=== PATIENT | male | born 1965 | race Caucasian/White ===

== ENCOUNTER 2017-10-17 21:31 | Emergency (ER) | payer BC ==
[2017-10-17 21:36] VITALS: RESP 18
--- NOTE | 2017-10-17 21:41 | ED ---
General Adult HPI - General Chief complaint: Abdominal Pain Stated complaint: lower right abdominal pain Time Seen by Provider: 10/17/17 21:41 Source: patient Mode of arrival: ambulatory Limitations: no limitations - History of Present Illness Initial comments: Ector is a 51-year-old male who presents to the emergency department for evaluation of a sudden onset of right-sided abdominal and flank pain. Patient reports that he was in his usual state of health throughout the day today, he was able to attend to his usual weekend activities including doing yardwork. He reports the symptoms from for dinner. Around 9 PM he was sitting on his couch when he had a sudden onset of stabbing pain in his right lower quadrant and right flank. - Related Data Home Medications Medication Instructions Recorded Confirmed Atorvastatin [Lipitor] 10 mg PO DAILY 08/11/17 10/17/17 Vit D3/Folic Acid/B2/B6/B12 1 tab PO DAILY 08/11/17 10/17/17 [Folgard Tablet] metFORMIN HCL 1,000 mg PO DAILY 08/11/17 10/17/17 sitaGLIPtin [Januvia] 100 mg PO DAILY 08/11/17 10/17/17 Previous Rx's Medication Instructions Recorded HYDROcodone/APAP 5-325MG [[place] 5] 1 each PO Q4HR PRN #8 tab 10/17/17 Tamsulosin HCl [Flomax] 0.4 mg PO DAILY #7 cap 10/17/17 Allergies Allergy/AdvReac Type Severity Reaction Status Date / Time No Known Allergies Allergy Verified 08/11/17 14:28 Review of Systems ROS Statement: Those systems with pertinent positive or pertinent negative responses have been documented in the HPI. ROS Other: All systems not noted in ROS Statement are negative. Past Medical History Past Medical History: Diabetes Mellitus, Hyperlipidemia Additional Past Medical History / Comment(s): myofascial pain, hypertriglyceridemia History of Any Multi-Drug Resistant Organisms: None Reported Past Surgical History: Orthopedic Surgery, Tonsillectomy Additional Past Surgical History / Comment(s): right foot surgery Past Anesthesia/Blood Transfusion Reactions: No Reported Reaction Past Psychological History: No Psychological Hx Reported Smoking Status: Never smoker General Exam Limitations: no limitations Course Vital Signs 10/17/17 10/17/17 10/18/17 21:33 23:11 00:04 Temperature 99.3 F 98.4 F Pulse Rate 77 95 91 Respiratory 18 18 18 Rate Blood Pressure 134/96 160/71 157/70 O2 Sat by Pulse 96 98 98 Oximetry - Reevaluation(s) Reevaluation #1: Patient reevaluated, reports resolution of his pain after Toradol. CT is still pending but I advised the patient that based on his labs and urinalysis I have a high suspicion for a kidney stone. 10/17/17 23:27 Medical Decision Making - Medical Decision Making Patient seen and evaluated, history obtained from patient and Patient with acute onset severe RLQ pain, patient with no flank pain. Differential includes intraabdominal vs urogenital pain, labs and imaging ordered Patient was reevaluated, was bent over in pain clutching his lower abdomen. At this time a computed tomography scan was ordered Labs with normal WBC, microscopic hematuria - increasing suspicion for renal colic as the cause of patient's pain Toradol was ordered and given Patient went to CT, upon return he reports complete resolution of his pain and is lying comfortably in the bed. Again this increases my suspicion that this is renal colic. CT results are pending. A reveals a 5 mm UVJ stone. Addition a 3 mm stone in the right kidney. Mild hydronephrosis. Results were discussed with the patient, advised that the stone has traveled from the kidney and is sitting at the bladder, 5 mm stone is likely to pass the may cause some discomfort. I will discharge patient home with a few [place] as well as Jyoti. I will refer patient to urology for outpatient follow-up. I discussed with patient the indications for return to the emergency department including but not limited to pain not controlled by oral medications, fever, chills, pain with urination, and ability to tolerate oral intake or any new or concerning symptoms. All questions pertaining care were answered to the best of my ability and the patient was discharged home in stable condition. - Lab Data Result diagrams: 10/17/17 22:00 10/17/17 22:00 Lab Results 10/17/17 10/17/17 10/17/17 Range/Units 21:45 22:00 22:00 WBC 8.4 (3.8-10.6) k/uL RBC 5.32 (4.30-5.90) m/uL Hgb 14.9 (13.0-17.5) gm/dL Hct 43.9 (39.0-53.0) % MCV 82.6 (80.0-100.0) fL MCH 28.1 (25.0-35.0) pg MCHC 34.0 (31.0-37.0) g/dL RDW 12.9 (11.5-15.5) % Plt Count 232 (150-450) k/uL Neutrophils % 60 % Lymphocytes % 25 % Monocytes % 9 % Eosinophils % 3 % Basophils % 0 % Neutrophils # 5.0 (1.3-7.7) k/uL Lymphocytes # 2.1 (1.0-4.8) k/uL Monocytes # 0.8 (0-1.0) k/uL Eosinophils # 0.2 (0-0.7) k/uL Basophils # 0.0 (0-0.2) k/uL Sodium 143 (137-145) mmol/L Potassium 4.2 (3.5-5.1) mmol/L Chloride 104 (98-107) mmol/L Carbon Dioxide 23 (22-30) mmol/L Anion Gap 16 mmol/L BUN 29 H (9-20) mg/dL Creatinine 1.20 (0.66-1.25) mg/dL Est GFR (CKD-EPI)AfAm 81 (>60 ml/min/1.73 sqM) Est GFR (CKD-EPI)NonAf 70 (>60 ml/min/1.73 sqM) Glucose 133 H (74-99) mg/dL POC Glucose (mg/dL) 133 H (75-99) mg/dL POC Glu Care Asst Blayne Yang Calcium 10.2 (8.4-10.2) mg/dL Total Bilirubin 0.5 (0.2-1.3) mg/dL AST 33 (17-59) U/L ALT 64 (21-72) U/L Alkaline Phosphatase 85 (38-126) U/L Total Protein 6.9 (6.3-8.2) g/dL Albumin 4.2 (3.5-5.0) g/dL Amylase 55 (30-110) U/L Lipase 157 (23-300) U/L Urine Color Urine Appearance (Clear) Urine pH (5.0-8.0) Ur Specific [place] (1.001-1.035) Urine Protein (Negative) Urine Glucose (UA) (Negative) Urine Ketones (Negative) Urine Blood (Negative) Urine Nitrite (Negative) Urine Bilirubin (Negative) Urine Urobilinogen (<2.0) mg/dL Ur Leukocyte Esterase (Negative) Urine RBC (0-5) /hpf Urine WBC (0-5) /hpf Ur Squamous Epith Cells (0-4) /hpf Hyaline Casts (0-2) /lpf Urine Mucus (None) /hpf 10/17/17 Range/Units 22:30 WBC (3.8-10.6) k/uL RBC (4.30-5.90) m/uL Hgb (13.0-17.5) gm/dL Hct (39.0-53.0) % MCV (80.0-100.0) fL MCH (25.0-35.0) pg MCHC (31.0-37.0) g/dL RDW (11.5-15.5) % Plt Count (150-450) k/uL Neutrophils % % Lymphocytes % % Monocytes % % Eosinophils % % Basophils % % Neutrophils # (1.3-7.7) k/uL Lymphocytes # (1.0-4.8) k/uL Monocytes # (0-1.0) k/uL Eosinophils # (0-0.7) k/uL Basophils # (0-0.2) k/uL Sodium (137-145) mmol/L Potassium (3.5-5.1) mmol/L Chloride (98-107) mmol/L Carbon Dioxide (22-30) mmol/L Anion Gap mmol/L BUN (9-20) mg/dL Creatinine (0.66-1.25) mg/dL Est GFR (CKD-EPI)AfAm (>60 ml/min/1.73 sqM) Est GFR (CKD-EPI)NonAf (>60 ml/min/1.73 sqM) Glucose (74-99) mg/dL POC Glucose (mg/dL) (75-99) mg/dL POC Glu Care Asst ID Calcium (8.4-10.2) mg/dL Total Bilirubin (0.2-1.3) mg/dL AST (17-59) U/L ALT (21-72) U/L Alkaline Phosphatase (38-126) U/L Total Protein (6.3-8.2) g/dL Albumin (3.5-5.0) g/dL Amylase (30-110) U/L Lipase (23-300) U/L Urine Color Light Yellow Urine Appearance Clear (Clear) Urine pH 5.5 (5.0-8.0) Ur Specific [place] 1.017 (1.001-1.035) Urine Protein Negative (Negative) Urine Glucose (UA) Negative (Negative) Urine Ketones Negative (Negative) Urine Blood Moderate H (Negative) Urine Nitrite Negative (Negative) Urine Bilirubin Negative (Negative) Urine Urobilinogen <2.0 (<2.0) mg/dL Ur Leukocyte Esterase Negative (Negative) Urine RBC 58 H (0-5) /hpf Urine WBC 1 (0-5) /hpf Ur Squamous Epith Cells <1 (0-4) /hpf Hyaline Casts 1 (0-2) /lpf Urine Mucus Rare H (None) /hpf Disposition Clinical Impression: Kidney stone on right side Disposition: HOME SELF-CARE Condition: Good Instructions: Kidney Stones (ED) Prescriptions: HYDROcodone/APAP 5-325MG [[place] 5] 1 each PO Q4HR PRN #8 tab PRN Reason: Pain Tamsulosin HCl [Flomax] 0.4 mg PO DAILY #7 cap Is patient prescribed a controlled substance at d/c from ED?: Yes When asked, does pt state using other controlled substances?: No Referrals: Delfin Hammer MD [Primary Care Provider] - 1-2 days Joey Daniel MD [STAFF PHYSICIAN] - 1-2 days Time of Disposition: 23:29
[2017-10-17 21:49] LABS: Glucose,Whole Blood 133 mg/dL (75-99)
[2017-10-17] MEDS ORDERED: SODIUM CHLORIDE 0.9% 1,000 ML IV STA (22:17)
[2017-10-17] MEDS ORDERED: KETOROLAC 30 MG/ML 1 ML VIAL IVP STA (22:27)
[2017-10-17 22:28] LABS: Basophils % (A) 0 %; Eosinophils # (A) 0.2 k/uL (0-0.7); Eosinophils % (A) 3 %; HCT 43.9 % (39.0-53.0); HGB 14.9 gm/dL (13.0-17.5); Lymphocytes # (A) 2.1 k/uL (1.0-4.8); Lymphocytes % (A) 25 %; MCH 28.1 pg (25.0-35.0); MCV 82.6 fL (80.0-100.0); Mean Platelet Volume 7.3; Monocytes # (A) 0.8 k/uL (0-1.0); Monocytes % (A) 9 %; Neutrophils % (A) 60 %; Platelet Count 232 k/uL (150-450); RBC 5.32 m/uL (4.30-5.90); RDW 12.9 % (11.5-15.5); WBC 8.4 k/uL (3.8-10.6)
[2017-10-17] MEDS ORDERED: RX INFO: IV CONTRAST WAS GIVEN 1 EACH MISC MISCELLANE PRN (22:30)
[2017-10-17 22:38] LABS: Albumin 4.2 g/dL (3.5-5.0); Calcium 10.2 mg/dL (8.4-10.2); Potassium 4.2 mmol/L (3.5-5.1); Total Bilirubin 0.5 mg/dL (0.2-1.3); Total Protein 6.9 g/dL (6.3-8.2)
--- NOTE | 2017-10-17 22:49 | XR ---
EXAMINATION TYPE: XR KUB DATE OF EXAM: 10/17/2017 COMPARISON: NONE HISTORY: Brain lower quadrant pain TECHNIQUE: 2 views FINDINGS: Bowel gas pattern is normal. There is no sign of intestinal obstruction or pneumoperitoneum . Fecal pattern is normal. There are no pathologic calcifications over the kidneys. There is no evide nce of a mass. There is spurring in the thoracic spine. IMPRESSION: Nonacute abdomen.
[2017-10-17 22:53] LABS: Appearance,Urine Clear (Clear); Bilirubin,Urine Negative (Negative); Blood,Urine Moderate (Negative); Color,Urine Light Yellow; Glucose,Urine (UA) Negative (Negative); Hyaline Casts,Urine 1 /lpf (0-2); Ketones,Urine Negative (Negative); Leukocyte Esterase,Urine Negative (Negative); Mucus,Urine Rare /hpf; Nitrite,Urine Negative (Negative); PH, Urine 5.5 (5.0-8.0); Protein,Urine Negative (Negative); RBC,Urine 58 /hpf (0-5); Specific Gravity,Urine 1.017 (1.001-1.035); Squamous Epithelial Cell,Urine <1 /hpf (0-4); Urobilinogen,Urine <2.0 mg/dL (<2.0); WBC,Urine 1 /hpf (0-5)
[2017-10-17 23:12] VITALS: TEMP 98.4
--- NOTE | 2017-10-17 23:18 | CT ---
EXAMINATION TYPE: CT abdomen pelvis w con DATE OF EXAM: 10/17/2017 COMPARISON: NONE HISTORY: RLQ pain CT DLP: 1807.4 mGycm Automated exposure control for dose reduction was used. TECHNIQUE: Helical acquisition of images was performed from the lung bases through the pelvis. CONTRAST: Performed without Oral Contrast and with IV Contrast, patient injected with 100 mL of Isovue 300. FINDINGS: Lung bases are clear. There is no pleural effusion. There is no pericardial effusion. There is low at tenuation in the liver consistent with fatty infiltration. Bile ducts are not dilated. There is no ev idence of a splenic mass. Pancreas appears normal. Gallbladder is contracted. There is no adrenal mass. Kidneys show satisfactory contrast opacification. There is a 3 mm calculus in the interpolar right kidney. There is mild right-sided hydronephrosis with a 5 mm calculus at the right ureteropelvic junction. There is no retroperitoneal adenopathy. There is no ascites. I see no intestinal wall thickening. The re are no dilated loops. There are multiple sigmoid diverticula. There is no sign of diverticulitis. Bladder distends smoothly. I see no pelvic mass. Appendix appears normal. I see no bony destructive process. There is probably a moderate the large posterior L4-5 disc herniat ion in the midline. IMPRESSION: RIGHT RENAL CALCULUS. OBSTRUCTING CALCULUS AT THE RIGHT URETEROPELVIC JUNCTION WITH MILD RIGHT-SIDED HYDRONEPHROSIS. L4-5 MODERATELY LARGE POSTERIOR DISC HERNIATION. THERE IS RESULTANT SPINAL STENOSIS. FATTY INFILTRATION OF THE LIVER.
[2017-10-18 00:05] VITALS: BP 157/70; PULSE 91
== END 2017-10-17 23:58 | disposition home or self-care (01) ==
LOC: EC 21:31
DX: N13.2 Hydronephrosis with renal and ureteral calculous obstruction (principal); E11.9 Type 2 diabetes mellitus without complications; E78.1 Pure hyperglyceridemia; Z79.84 Long term (current) use of oral hypoglycemic drugs; Z79.899 Other long term (current) drug therapy
CPT/HCPCS: 99284; 96374; 96361; 36415; 80053; 82150; 83690; 85025; 81001; 74018; 74177; J1885; Q9967

== ENCOUNTER 2017-10-19 02:09 | Emergency (ER) | payer BC ==
[2017-10-19] MEDS ORDERED: SODIUM CHLORIDE 0.9% 1,000 ML IV STA (02:38)
[2017-10-19] MEDS ORDERED: MORPHINE SULFATE 4 MG/0.8 ML SYRINGE (INJ) IV STA (02:38)
[2017-10-19] MEDS ORDERED: KETOROLAC 30 MG/ML 1 ML VIAL IVP STA (02:38)
[2017-10-19 02:57] LABS: Basophils % (A) 0 %; Eosinophils # (A) 0.1 k/uL (0-0.7); Eosinophils % (A) 1 %; HGB 15.1 gm/dL (13.0-17.5); Lymphocytes # (A) 0.9 k/uL (1.0-4.8); Lymphocytes % (A) 8 %; MCH 28.1 pg (25.0-35.0); MCHC 34.4 g/dL (31.0-37.0); MCV 81.8 fL (80.0-100.0); Mean Platelet Volume 7.5; Monocytes # (A) 0.5 k/uL (0-1.0); Monocytes % (A) 5 %; Neutrophils # (A) 10.1 k/uL (1.3-7.7); Neutrophils % (A) 86 %; Platelet Count 234 k/uL (150-450); RBC 5.38 m/uL (4.30-5.90); RDW 12.7 % (11.5-15.5); WBC 11.8 k/uL (3.8-10.6)
[2017-10-19 03:08] LABS: Albumin 4.4 g/dL (3.5-5.0); Calcium 9.9 mg/dL (8.4-10.2); Potassium 4.3 mmol/L (3.5-5.1); Total Bilirubin 0.6 mg/dL (0.2-1.3); Total Protein 7.2 g/dL (6.3-8.2)
[2017-10-19 03:10] LABS: Appearance,Urine Clear (Clear); Bilirubin,Urine Negative (Negative); Blood,Urine Moderate (Negative); Color,Urine Light Yellow; Glucose,Urine (UA) 3+ (Negative); Ketones,Urine 1+ (Negative); Leukocyte Esterase,Urine Negative (Negative); Mucus,Urine Rare /hpf; Nitrite,Urine Negative (Negative); Protein,Urine Negative (Negative); RBC,Urine <1 /hpf (0-5); Specific Gravity,Urine 1.011 (1.001-1.035); Urobilinogen,Urine <2.0 mg/dL (<2.0); WBC,Urine <1 /hpf (0-5)
--- NOTE | 2017-10-19 03:17 | XR ---
EXAMINATION TYPE: XR KUB DATE OF EXAM: 10/19/2017 COMPARISON: 10/17/2017 HISTORY: Flank pain TECHNIQUE: 2 views FINDINGS: There is no sign of intestinal obstruction or pneumoperitoneum. Fecal pattern is normal. Th ere are no pathologic calcifications over the kidneys. IMPRESSION: Nonacute abdomen. No change.
--- NOTE | 2017-10-19 03:45 | ED ---
Abdominal Pain HPI - General Chief Complaint: Abdominal Pain Stated Complaint: kidney stone Time Seen by Provider: 10/19/17 02:37 Source: patient, RN notes reviewed, old records reviewed Mode of arrival: wheelchair Limitations: physical limitation - History of Present Illness Initial Comments: 51-year-old male presents emergency room today chief complaint of right flank pain and right lower abdominal pain. Patient reports is sinus with a kidney stone approximately 2 days ago. He reports that the pain has been persistent since that time. He's been taking [place] at home and his Flomax. Patient states he's had no vomiting. He denies any fever or chills. Reports pain just been more severe since 8:00 this evening. Denies any other symptoms/ - Related Data Home Medications Medication Instructions Recorded Confirmed Atorvastatin [Lipitor] 10 mg PO DAILY 08/11/17 10/17/17 Vit D3/Folic Acid/B2/B6/B12 1 tab PO DAILY 08/11/17 10/17/17 [Folgard Tablet] metFORMIN HCL 1,000 mg PO DAILY 08/11/17 10/17/17 sitaGLIPtin [Januvia] 100 mg PO DAILY 08/11/17 10/17/17 Previous Rx's Medication Instructions Recorded HYDROcodone/APAP 5-325MG [[place] 5] 1 each PO Q4HR PRN #8 tab 10/17/17 Tamsulosin HCl [Flomax] 0.4 mg PO DAILY #7 cap 10/17/17 HYDROcodone/APAP 5-325MG [[place] 1 tab PO Q4H PRN #15 tab 10/19/17 5-325] Ketorolac [Toradol] 10 mg PO Q6H #20 tab 10/19/17 Allergies Allergy/AdvReac Type Severity Reaction Status Date / Time No Known Allergies Allergy Verified 10/19/17 02:14 Review of Systems ROS Statement: Those systems with pertinent positive or pertinent negative responses have been documented in the HPI. ROS Other: All systems not noted in ROS Statement are negative. Past Medical History Past Medical History: Diabetes Mellitus, Hyperlipidemia Additional Past Medical History / Comment(s): myofascial pain, hypertriglyceridemia, kidney stones History of Any Multi-Drug Resistant Organisms: None Reported Past Surgical History: Orthopedic Surgery, Tonsillectomy Additional Past Surgical History / Comment(s): right foot surgery, Past Anesthesia/Blood Transfusion Reactions: No Reported Reaction Past Psychological History: No Psychological Hx Reported Smoking Status: Never smoker Past Alcohol Use History: Occasional Past Drug Use History: None Reported General Exam - General Exam Comments Initial Comments: 51-year-old male in moderate discomfort. Clutching right lower quadrant. Limitations: physical limitation General appearance: alert, in no apparent distress Head exam: Present: atraumatic, normocephalic, normal inspection Eye exam: Present: normal appearance, PERRL, EOMI. Absent: scleral icterus, conjunctival injection, periorbital swelling ENT exam: Present: normal exam, mucous membranes moist Neck exam: Present: normal inspection. Absent: tenderness, meningismus, lymphadenopathy Respiratory exam: Present: normal lung sounds bilaterally. Absent: respiratory distress, wheezes, rales, rhonchi, stridor Cardiovascular Exam: Present: regular rate, normal rhythm, normal heart sounds. Absent: systolic murmur, diastolic murmur, rubs, gallop, clicks GI/Abdominal exam: Present: soft, tenderness (RLQ tendernesss), normal bowel sounds. Absent: distended, guarding, rebound, rigid Extremities exam: Present: normal inspection, full ROM, normal capillary refill. Absent: tenderness, pedal edema, joint swelling, calf tenderness Back exam: Present: normal inspection, CVA tenderness (R) Neurological exam: Present: alert, oriented X3, CN II-XII intact Psychiatric exam: Present: normal affect, normal mood Course Vital Signs 10/19/17 10/19/17 10/19/17 02:12 03:00 04:52 Temperature 98.5 F 97.8 F Pulse Rate 85 92 83 Respiratory 18 22 19 Rate Blood Pressure 181/101 186/89 154/87 O2 Sat by Pulse 96 96 96 Oximetry Medical Decision Making - Medical Decision Making 51-year-old male. Evaluation for right kidney stone. He had a computed tomography scan 2 days ago which showed a 5 mm stone in the right UPJ. Patient reports the pain is persistent. It's been worse for the past few hours. Been taking are Flomax. Patient's urinalysis shows significant hematuria. Kidney function is preserved. White count was slightly elevated compared to 2 days ago. Patient KUB today shows no stone. His pain was well controlled after toradol and Morhpine. PAtient Stone has likely traveld to [facility]. Discussed follow up with urology. Discussed adding toradol, and writing for more pain medication because his last Rx has ran out. Return parameters discussed. - Lab Data Result diagrams: 10/19/17 02:27 10/19/17 02:27 Lab Results 10/19/17 10/19/17 10/19/17 Range/Units 02:27 02:27 02:58 WBC 11.8 H (3.8-10.6) k/uL RBC 5.38 (4.30-5.90) m/uL Hgb 15.1 (13.0-17.5) gm/dL Hct 44.0 (39.0-53.0) % MCV 81.8 (80.0-100.0) fL MCH 28.1 (25.0-35.0) pg MCHC 34.4 (31.0-37.0) g/dL RDW 12.7 (11.5-15.5) % Plt Count 234 (150-450) k/uL Neutrophils % 86 % Lymphocytes % 8 % Monocytes % 5 % Eosinophils % 1 % Basophils % 0 % Neutrophils # 10.1 H (1.3-7.7) k/uL Lymphocytes # 0.9 L (1.0-4.8) k/uL Monocytes # 0.5 (0-1.0) k/uL Eosinophils # 0.1 (0-0.7) k/uL Basophils # 0.0 (0-0.2) k/uL Sodium 139 (137-145) mmol/L Potassium 4.3 (3.5-5.1) mmol/L Chloride 101 (98-107) mmol/L Carbon Dioxide 21 L (22-30) mmol/L Anion Gap 17 mmol/L BUN 24 H (9-20) mg/dL Creatinine 1.20 (0.66-1.25) mg/dL Est GFR (CKD-EPI)AfAm 81 (>60 ml/min/1.73 sqM) Est GFR (CKD-EPI)NonAf 70 (>60 ml/min/1.73 sqM) Glucose 191 H (74-99) mg/dL Calcium 9.9 (8.4-10.2) mg/dL Total Bilirubin 0.6 (0.2-1.3) mg/dL AST 35 (17-59) U/L ALT 61 (21-72) U/L Alkaline Phosphatase 93 (38-126) U/L Total Protein 7.2 (6.3-8.2) g/dL Albumin 4.4 (3.5-5.0) g/dL Amylase 55 (30-110) U/L Lipase 112 (23-300) U/L Urine Color Light Yellow Urine Appearance Clear (Clear) Urine pH 5.0 (5.0-8.0) Ur Specific [place] 1.011 (1.001-1.035) Urine Protein Negative (Negative) Urine Glucose (UA) 3+ H (Negative) Urine Ketones 1+ H (Negative) Urine Blood Moderate H (Negative) Urine Nitrite Negative (Negative) Urine Bilirubin Negative (Negative) Urine Urobilinogen <2.0 (<2.0) mg/dL Ur Leukocyte Esterase Negative (Negative) Urine RBC <1 (0-5) /hpf Urine WBC <1 (0-5) /hpf Urine Mucus Rare H (None) /hpf - Radiology Data Radiology results: report reviewed Evidence of right renal calculus obstructing Of the right U P.J. with mild right hydronephrosis. There is a 5 mm calculus noted. Disposition Clinical Impression: Right kidney stone Disposition: HOME SELF-CARE Condition: Good Instructions: Renal Colic (ED) Additional Instructions: Patient should follow-up with urology. Take the pain medicine and Toradol medication. Continue Flomax. Return to emergency department if any alarming signs or symptoms occur. Prescriptions: HYDROcodone/APAP 5-325MG [[place] 5-325] 1 tab PO Q4H PRN #15 tab PRN Reason: Pain Ketorolac [Toradol] 10 mg PO Q6H #20 tab Is patient prescribed a controlled substance at d/c from ED?: Yes If prescribed controlled substance>3 days was MAPS reviewed?: Yes When asked, does pt state using other controlled substances?: No Referrals: Delfin Hammer MD [Primary Care Provider] - 1-2 days Joey Daniel MD [STAFF PHYSICIAN] - 1-2 days Time of Disposition: 04:25
[2017-10-19] MEDS ORDERED: MORPHINE SULFATE 4 MG/0.8 ML SYRINGE (INJ) IVP STA (04:38)
[2017-10-19 04:54] VITALS: BP 154/87; PULSE 83; RESP 19; TEMP 97.8
== END 2017-10-19 04:54 | disposition home or self-care (01) ==
LOC: EC 02:09
DX: N20.0 Calculus of kidney (principal); D72.829 Elevated white blood cell count, unspecified; E11.9 Type 2 diabetes mellitus without complications; E78.5 Hyperlipidemia, unspecified; Z79.84 Long term (current) use of oral hypoglycemic drugs; Z79.899 Other long term (current) drug therapy
CPT/HCPCS: 99284; 96374; 96375; 96376; 36415; 80053; 82150; 83690; 85025; 81001; 74018; J1885; J2270

== ENCOUNTER 2017-11-19 07:14 | Emergency (ER) | payer BC ==
[2017-11-19] MEDS ORDERED: KETOROLAC 30 MG/ML 1 ML VIAL IVP STA (07:38)
[2017-11-19] MEDS ORDERED: SODIUM CHLORIDE 0.9% 500 ML IV STA (07:38)
[2017-11-19] MEDS ORDERED: METOCLOPRAMIDE 5 MG/ML 2 ML VIAL IVP STA (07:38)
--- NOTE | 2017-11-19 07:41 | ED ---
General Adult HPI - General Chief complaint: Abdominal Pain Stated complaint: poss kidney stone Time Seen by Provider: 11/19/17 07:24 Source: patient, RN notes reviewed Mode of arrival: ambulatory Limitations: no limitations - History of Present Illness Initial comments: Patient is a pleasant 52-year-old male presenting to the emergency Department with abdominal discomfort. Patient had some mild indigestion for a day or 2. This morning patient has right flank pain. Right flank pain is similar to previous kidney stones. Discomfort does go somewhat towards the back. No hematuria or dysuria. Patient has difficulty getting comfortable. Discomfort is not positional. No discomfort with sitting up and walking. Mild nausea. - Related Data Home Medications Medication Instructions Recorded Confirmed metFORMIN HCL 1,000 mg PO BID 08/11/17 11/19/17 sitaGLIPtin [Januvia] 100 mg PO DAILY 08/11/17 11/19/17 Atorvastatin [Lipitor] 20 mg PO HS 11/19/17 11/19/17 Cholecalciferol [Vitamin D3] 1,000 unit PO DAILY 11/19/17 11/19/17 Previous Rx's Medication Instructions Recorded Ketorolac [Toradol] 10 mg PO Q6HR PRN #15 tab 11/19/17 Metoclopramide HCl [Reglan] 10 mg PO Q6HR PRN #15 tablet 11/19/17 Tamsulosin [Flomax] 0.4 mg PO DAILY #14 cap 11/19/17 Allergies Allergy/AdvReac Type Severity Reaction Status Date / Time No Known Allergies Allergy Verified 11/19/17 08:32 Review of Systems ROS Statement: Those systems with pertinent positive or pertinent negative responses have been documented in the HPI. ROS Other: All systems not noted in ROS Statement are negative. Constitutional: Denies: fever Eyes: Denies: eye pain ENT: Denies: ear pain Respiratory: Denies: cough Cardiovascular: Denies: chest pain Endocrine: Denies: fatigue Gastrointestinal: Reports: abdominal pain, nausea. Denies: vomiting Genitourinary: Denies: dysuria Musculoskeletal: Denies: arthralgia Skin: Denies: rash Neurological: Denies: weakness Past Medical History Past Medical History: Diabetes Mellitus, Hyperlipidemia Additional Past Medical History / Comment(s): myofascial pain, hypertriglyceridemia, kidney stones History of Any Multi-Drug Resistant Organisms: None Reported Past Surgical History: Orthopedic Surgery, Tonsillectomy Additional Past Surgical History / Comment(s): right foot surgery, Past Anesthesia/Blood Transfusion Reactions: No Reported Reaction Past Psychological History: No Psychological Hx Reported Smoking Status: Never smoker Past Alcohol Use History: Occasional Past Drug Use History: None Reported General Exam Limitations: no limitations General appearance: alert, in no apparent distress Head exam: Present: atraumatic Eye exam: Present: normal appearance, PERRL ENT exam: Present: normal oropharynx Neck exam: Present: normal inspection Respiratory exam: Present: normal lung sounds bilaterally Cardiovascular Exam: Present: regular rate, normal rhythm Expanded Peripheral pulses: 2+: Posterior Tibialis (R), Posterior Tibialis (L) GI/Abdominal exam: Present: soft. Absent: tenderness Extremities exam: Present: normal inspection Back exam: Present: normal inspection. Absent: CVA tenderness (R) Neurological exam: Present: alert Psychiatric exam: Present: normal affect, normal mood Skin exam: Present: normal color Course Vital Signs 11/19/17 07:16 Temperature 98.5 F Pulse Rate 72 Respiratory 20 Rate Blood Pressure 193/104 O2 Sat by Pulse 98 Oximetry Medical Decision Making - Medical Decision Making Patient reevaluated and resting comfortably in bed. Discomfort is only mild at this time. Patient updated on results and need for follow-up with urology. - Lab Data Result diagrams: 11/19/17 07:45 11/19/17 07:45 Lab Results 11/19/17 11/19/17 11/19/17 Range/Units 07:45 07:45 07:45 WBC 9.6 (3.8-10.6) k/uL RBC 5.42 (4.30-5.90) m/uL Hgb 15.8 (13.0-17.5) gm/dL Hct 44.7 (39.0-53.0) % MCV 82.5 (80.0-100.0) fL MCH 29.1 (25.0-35.0) pg MCHC 35.3 (31.0-37.0) g/dL RDW 13.1 (11.5-15.5) % Plt Count 233 (150-450) k/uL Neutrophils % 79 % Lymphocytes % 11 % Monocytes % 7 % Eosinophils % 2 % Basophils % 0 % Neutrophils # 7.6 (1.3-7.7) k/uL Lymphocytes # 1.0 (1.0-4.8) k/uL Monocytes # 0.6 (0-1.0) k/uL Eosinophils # 0.2 (0-0.7) k/uL Basophils # 0.0 (0-0.2) k/uL PT 11.4 (9.0-12.0) sec INR 1.2 H (<1.2) APTT 25.4 (22.0-30.0) sec Sodium 142 (137-145) mmol/L Potassium 4.3 (3.5-5.1) mmol/L Chloride 104 (98-107) mmol/L Carbon Dioxide 24 (22-30) mmol/L Anion Gap 14 mmol/L BUN 22 H (9-20) mg/dL Creatinine 1.45 H (0.66-1.25) mg/dL Est GFR (CKD-EPI)AfAm 64 (>60 ml/min/1.73 sqM) Est GFR (CKD-EPI)NonAf 55 (>60 ml/min/1.73 sqM) Glucose 125 H (74-99) mg/dL Calcium 9.9 (8.4-10.2) mg/dL Total Bilirubin 0.5 (0.2-1.3) mg/dL AST 27 (17-59) U/L ALT 58 (21-72) U/L Alkaline Phosphatase 75 (38-126) U/L Total Protein 7.1 (6.3-8.2) g/dL Albumin 4.3 (3.5-5.0) g/dL Amylase 53 (30-110) U/L Lipase 135 (23-300) U/L Urine Color Urine Appearance (Clear) Urine pH (5.0-8.0) Ur Specific [place] (1.001-1.035) Urine Protein (Negative) Urine Glucose (UA) (Negative) Urine Ketones (Negative) Urine Blood (Negative) Urine Nitrite (Negative) Urine Bilirubin (Negative) Urine Urobilinogen (<2.0) mg/dL Ur Leukocyte Esterase (Negative) Urine RBC (0-5) /hpf Urine WBC (0-5) /hpf Urine Mucus (None) /hpf 11/19/17 Range/Units 07:45 WBC (3.8-10.6) k/uL RBC (4.30-5.90) m/uL Hgb (13.0-17.5) gm/dL Hct (39.0-53.0) % MCV (80.0-100.0) fL MCH (25.0-35.0) pg MCHC (31.0-37.0) g/dL RDW (11.5-15.5) % Plt Count (150-450) k/uL Neutrophils % % Lymphocytes % % Monocytes % % Eosinophils % % Basophils % % Neutrophils # (1.3-7.7) k/uL Lymphocytes # (1.0-4.8) k/uL Monocytes # (0-1.0) k/uL Eosinophils # (0-0.7) k/uL Basophils # (0-0.2) k/uL PT (9.0-12.0) sec INR (<1.2) APTT (22.0-30.0) sec Sodium (137-145) mmol/L Potassium (3.5-5.1) mmol/L Chloride (98-107) mmol/L Carbon Dioxide (22-30) mmol/L Anion Gap mmol/L BUN (9-20) mg/dL Creatinine (0.66-1.25) mg/dL Est GFR (CKD-EPI)AfAm (>60 ml/min/1.73 sqM) Est GFR (CKD-EPI)NonAf (>60 ml/min/1.73 sqM) Glucose (74-99) mg/dL Calcium (8.4-10.2) mg/dL Total Bilirubin (0.2-1.3) mg/dL AST (17-59) U/L ALT (21-72) U/L Alkaline Phosphatase (38-126) U/L Total Protein (6.3-8.2) g/dL Albumin (3.5-5.0) g/dL Amylase (30-110) U/L Lipase (23-300) U/L Urine Color Yellow Urine Appearance Clear (Clear) Urine pH 5.0 (5.0-8.0) Ur Specific R[place] 1.017 (1.001-1.035) Urine Protein Negative (Negative) Urine Glucose (UA) Negative (Negative) Urine Ketones Negative (Negative) Urine Blood Small H (Negative) Urine Nitrite Negative (Negative) Urine Bilirubin Negative (Negative) Urine Urobilinogen <2.0 (<2.0) mg/dL Ur Leukocyte Esterase Negative (Negative) Urine RBC 3 (0-5) /hpf Urine WBC 1 (0-5) /hpf Urine Mucus Rare H (None) /hpf - Radiology Data Radiology results: report reviewed (Computed tomography scan of the abdomen and pelvis shows distal ureteral calculi. Hydroureter [place] nephrosis.) Disposition Clinical Impression: Ureterolithiasis Disposition: HOME SELF-CARE Condition: Stable Instructions: Kidney Stones (ED) Additional Instructions: Please follow-up with primary care physician in the next day or 2 for recheck. Please also follow-up with urology in the next day or 2 for recheck. Return for uncontrolled pain, vomiting, fevers, worsening or changing symptoms or other concerns. Prescriptions: Ketorolac [Toradol] 10 mg PO Q6HR PRN #15 tab PRN Reason: Pain Metoclopramide HCl [Reglan] 10 mg PO Q6HR PRN #15 tablet PRN Reason: Nausea Tamsulosin [Flomax] 0.4 mg PO DAILY #14 cap Is patient prescribed a controlled substance at d/c from ED?: No Referrals: Delfin Hammer MD [Primary Care Provider] - 1-2 days Dillan Ochoa MD [STAFF PHYSICIAN] - 1-2 days Time of Disposition: 08:54
[2017-11-19 07:58] LABS: Basophils % (A) 0 %; Eosinophils # (A) 0.2 k/uL (0-0.7); Eosinophils % (A) 2 %; HCT 44.7 % (39.0-53.0); HGB 15.8 gm/dL (13.0-17.5); Lymphocytes % (A) 11 %; MCH 29.1 pg (25.0-35.0); MCHC 35.3 g/dL (31.0-37.0); MCV 82.5 fL (80.0-100.0); Mean Platelet Volume 6.8; Monocytes # (A) 0.6 k/uL (0-1.0); Monocytes % (A) 7 %; Neutrophils # (A) 7.6 k/uL (1.3-7.7); Neutrophils % (A) 79 %; Platelet Count 233 k/uL (150-450); RBC 5.42 m/uL (4.30-5.90); RDW 13.1 % (11.5-15.5); WBC 9.6 k/uL (3.8-10.6)
[2017-11-19 08:06] LABS: Appearance,Urine Clear (Clear); Bilirubin,Urine Negative (Negative); Blood,Urine Small (Negative); Color,Urine Yellow; Glucose,Urine (UA) Negative (Negative); Ketones,Urine Negative (Negative); Leukocyte Esterase,Urine Negative (Negative); Mucus,Urine Rare /hpf; Nitrite,Urine Negative (Negative); Protein,Urine Negative (Negative); RBC,Urine 3 /hpf (0-5); Specific Gravity,Urine 1.017 (1.001-1.035); Urobilinogen,Urine <2.0 mg/dL (<2.0); WBC,Urine 1 /hpf (0-5)
[2017-11-19 08:07] LABS: Albumin 4.3 g/dL (3.5-5.0); Calcium 9.9 mg/dL (8.4-10.2); Potassium 4.3 mmol/L (3.5-5.1); Total Bilirubin 0.5 mg/dL (0.2-1.3); Total Protein 7.1 g/dL (6.3-8.2)
[2017-11-19 08:08] LABS: INR 1.2 (<1.2); Partial Thromboplastin Time 25.4 sec (22.0-30.0); Prothrombin Time 11.4 sec (9.0-12.0)
--- NOTE | 2017-11-19 08:23 | CT ---
EXAMINATION TYPE: CT abdomen pelvis wo con DATE OF EXAM: 11/19/2017 COMPARISON: 10/17/2017 HISTORY: Rt flank pain CT DLP: 1141.7 mGycm Automated exposure control for dose reduction was used. TECHNIQUE: Helical acquisition of images was performed from the lung bases through the pelvis. FINDINGS: LUNG BASES: No significant abnormality is appreciated. There is trace pericardial fluid. LIVER/GB: Hepatic parenchyma is diffusely hypoattenuated in comparison to that of the spleen, most co mmonly seen in hepatic steatosis. This finding limits evaluation for hepatic masses. No gross evidenc e of hepatic mass is seen. No intrahepatic biliary ductal dilatation. No cholelithiasis PANCREAS: No significant abnormality is seen. No ductal dilatation. SPLEEN: No significant abnormality is seen. Splenomegaly. ADRENALS: No significant abnormality is seen. KIDNEYS: There is a punctate nonobstructing left lower pole calculus. Moderate right hydroureteroneph rosis is present secondary to an obstructing distal ureteral 6 mm calculus. This also results in asym metric size of the right kidney secondary to acute obstruction and perinephric fat stranding. Additio nal nonobstructing right midpole calculus measures 4 mm. Punctate 2 mm calculus is seen within the up per pole. FREE AIR: No free air is visualized REPRODUCTIVE ORGANS: No significant abnormality is seen URINARY BLADDER: No significant abnormality is seen. No bladder calculi are present. ADENOPATHY: No greater than 1 cm short axis lymph nodes are seen within the abdomen or pelvis. OSSEOUS STRUCTURES: Punctate femoral sclerotic foci most likely represent bone islands. Mild degener ative changes of the visualized spine are seen. Disc herniation or bulge is again seen at L4-L5 resul ting in spinal canal stenosis. BOWEL: Sigmoid diverticula are present without pericolonic fat stranding. OTHER: Bilateral inguinal rings are 5: There is a small periumbilical fat filled hernia. IMPRESSION: 1. OBSTRUCTING 4 MM RIGHT DISTAL URETERAL CALCULUS CREATING MODERATE RIGHT HYDROURETERONEPHROSIS, INC REASED FROM THE PRIOR WITH ASYMMETRIC SIZE OF THE RIGHT KIDNEY LIKELY DUE TO THE ACUTE OBSTRUCTION AN D HERNIA FOR FAT STRANDING. 2. HEPATIC STEATOSIS AND ADDITIONAL BILATERAL NONOBSTRUCTING RENAL CALCULI.
[2017-11-19 09:06] VITALS: BP 148/74; PULSE 75; RESP 18; TEMP 98.3
== END 2017-11-19 09:05 | disposition home or self-care (01) ==
LOC: EC 07:14
DX: N20.1 Calculus of ureter (principal); E11.9 Type 2 diabetes mellitus without complications; E78.5 Hyperlipidemia, unspecified; Z87.442 Personal history of urinary calculi; Z79.84 Long term (current) use of oral hypoglycemic drugs; Z79.899 Other long term (current) drug therapy
CPT/HCPCS: 36415; 80053; 82150; 83690; 85025; 85610; 85730; 81001; 74176; 99284; 96374; 96375; J2765; J1885

== ENCOUNTER → 2020-05-08 | Outpatient (CLI) | payer BC | END | disposition home or self-care (01) | LOC: LABWHC1 15:19 | PROVIDERS: ATTEND Family Medicine | DX: R50.9 Fever, unspecified (principal) | CPT/HCPCS: 87502; U0003; C9803 ==

== ENCOUNTER 2021-08-24 20:44 | Emergency (ER) | payer BC ==
[2021-08-24 20:51] VITALS: RESP 18; TEMP 98.6
--- NOTE | 2021-08-24 21:49 | ED ---
Allergic Reaction HPI - General Chief complaint: Allergic Reaction Stated complaint: Facial swelling and pain Time Seen by Provider: 08/24/21 21:43 Source: patient, RN notes reviewed, old records reviewed Mode of arrival: ambulatory Limitations: no limitations - History of Present Illness Initial Comments: This is a 55-year-old male to the emergency department for evaluation patient presents today with lower lip swelling significant edema of his lower lip. Patient has recent travel history or sick contacts. Patient is been off lisinopril for greater than 5 years. Patient states the swelling is been going on for greater than a week and he thought it was just some pain in his lip and was increasing his Chapstick use the swelling is been increasing ever since. Patient has no shortness of breath no tongue swelling and no other complaints MD Complaint: allergic reaction, facial swelling (Lower lip swelling) -: week(s) Exposure: unknown Symptoms: lip swelling Severity: moderate Treatment Prior to Arrival: none Previous Allergy History: none - Related Data Home Medications Medication Instructions Recorded Confirmed metFORMIN HCL [Glucophage] 1,000 mg PO BID 08/11/17 11/19/17 sitaGLIPtin [Januvia] 100 mg PO DAILY 08/11/17 11/19/17 Atorvastatin [Lipitor] 20 mg PO HS 11/19/17 11/19/17 Cholecalciferol [Vitamin D3] 1,000 unit PO DAILY 11/19/17 11/19/17 Previous Rx's Medication Instructions Recorded Ketorolac [Toradol] 10 mg PO Q6HR PRN #15 tab 11/19/17 Metoclopramide HCl [Reglan] 10 mg PO Q6HR PRN #15 tablet 11/19/17 Tamsulosin [Flomax] 0.4 mg PO DAILY #14 cap 11/19/17 Famotidine [Pepcid] 40 mg PO BID #28 tablet 08/24/21 hydrOXYzine HCL [Atarax] 25 mg PO TID PRN #15 tab 08/24/21 predniSONE 50 mg PO DAILY #5 tab 08/24/21 Allergies Allergy/AdvReac Type Severity Reaction Status Date / Time lisinopril AdvReac Swelling Verified 08/24/21 20:51 Review of Systems ROS Statement: Those systems with pertinent positive or pertinent negative responses have been documented in the HPI. ROS Other: All systems not noted in ROS Statement are negative. Past Medical History Past Medical History: Diabetes Mellitus, Hyperlipidemia Additional Past Medical History / Comment(s): myofascial pain, hypertriglyceridemia, kidney stones History of Any Multi-Drug Resistant Organisms: None Reported Past Surgical History: Orthopedic Surgery, Tonsillectomy Additional Past Surgical History / Comment(s): right foot surgery, Past Anesthesia/Blood Transfusion Reactions: No Reported Reaction Past Psychological History: No Psychological Hx Reported Smoking Status: Never smoker Past Alcohol Use History: Occasional Past Drug Use History: None Reported General Exam General appearance: alert, in no apparent distress Head exam: Present: atraumatic, normocephalic, normal inspection Eye exam: Present: normal appearance, PERRL, EOMI. Absent: scleral icterus, conjunctival injection, periorbital swelling ENT exam: Present: normal exam, mucous membranes moist, other (Lower lip swelling and no other edema) Neck exam: Present: normal inspection. Absent: tenderness, meningismus, lymphadenopathy Respiratory exam: Present: normal lung sounds bilaterally. Absent: respiratory distress, wheezes, rales, rhonchi, stridor Cardiovascular Exam: Present: regular rate, normal rhythm, normal heart sounds. Absent: systolic murmur, diastolic murmur, rubs, gallop, clicks GI/Abdominal exam: Present: soft, normal bowel sounds. Absent: distended, tenderness, guarding, rebound, rigid Extremities exam: Present: normal inspection, full ROM, normal capillary refill. Absent: tenderness, pedal edema, joint swelling, calf tenderness Back exam: Present: normal inspection Neurological exam: Present: alert, oriented X3, CN II-XII intact Psychiatric exam: Present: normal affect, normal mood Skin exam: Present: warm, dry, intact, normal color. Absent: rash Course Vital Signs 08/24/21 08/24/21 20:47 23:04 Temperature 98.6 F 98.6 F Pulse Rate 98 88 Respiratory 18 18 Rate Blood Pressure 152/99 148/72 O2 Sat by Pulse 98 98 Oximetry - Reevaluation(s) Reevaluation #1: 08/25/21 Medical record is reviewed Reevaluation #2: 08/25/21 Informed results and questions answered Reevaluation #3: 08/25/21 Patient is improved agreeable plan and okay for discharge home Medical Decision Making - Medical Decision Making 55 male to the emergency department with lower lip swelling patient's whole lower lip is significantly swollen, no signs of infection patient be treated as ALLERGIC reaction follow-up with primary care Disposition Clinical Impression: Allergic reaction, Swollen lip, Angioedema Narrative: Lower Lip Edema Disposition: HOME SELF-CARE Condition: Good Instructions (If sedation given, give patient instructions): Angioedema (ED) Prescriptions: hydrOXYzine HCL [Atarax] 25 mg PO TID PRN #15 tab PRN Reason: Itching Famotidine [Pepcid] 40 mg PO BID #28 tablet predniSONE 50 mg PO DAILY #5 tab Is patient prescribed a controlled substance at d/c from ED?: No Referrals: Delfin Hammer MD [Primary Care Provider] - 1-2 days
[2021-08-24] MEDS ORDERED: hydrOXYzine HCL 25 MG TAB PO STA (22:21)
[2021-08-24] MEDS ORDERED: DEXAMETHASONE SOD PHOSPHATE 10 MG/ML 1 ML VIAL IM STA (22:21)
[2021-08-24] MEDS ORDERED: FAMOTIDINE 20 MG TAB PO STA (22:21)
[2021-08-24 23:04] VITALS: BP 148/72; PULSE 88
== END 2021-08-24 23:04 | disposition home or self-care (01) ==
LOC: EC 20:44
DX: T78.3XXA Angioneurotic edema, initial encounter (principal); T78.40XA Allergy, unspecified, initial encounter; E11.9 Type 2 diabetes mellitus without complications; Z88.8 Allergy status to other drugs, medicaments and biological substances
CPT/HCPCS: 99283; 96372; J1100

== ENCOUNTER 2021-08-30 10:14 | Emergency (ER) | payer BC ==
[2021-08-30 10:31] VITALS: RESP 18
[2021-08-30] MEDS ORDERED: ONDANSETRON 4 MG/2 ML VIAL IVP STA (11:13)
[2021-08-30] MEDS ORDERED: SODIUM CHLORIDE 0.9% 1,000 ML IV STA (11:13)
[2021-08-30] MEDS ORDERED: FAMOTIDINE 20 MG/2 ML VIAL IV STA (11:14)
--- NOTE | 2021-08-30 11:16 | ED ---
General Adult HPI - General Chief complaint: Nausea/Vomiting/Diarrhea Stated complaint: vomiting Time Seen by Provider: 08/30/21 10:40 Source: patient Mode of arrival: ambulatory Limitations: no limitations - History of Present Illness Initial comments: Patient is a pleasant 45-year-old male presenting to the emergency department with nausea vomiting. Onset was this morning. Patient did take his medication. Patient has vomited approximately 8 times and still has some nausea. No abdominal pain. No fever. Patient has had one or 2 episodes of loose stools. No history of chronic similar problems. Patient was recently in the emergency department with angioedema however swelling has improved since that time. Patient has finished his medication. - Related Data Home Medications Medication Instructions Recorded Confirmed metFORMIN HCL [Glucophage] 1,000 mg PO BID 08/11/17 11/19/17 sitaGLIPtin [Januvia] 100 mg PO DAILY 08/11/17 11/19/17 Atorvastatin [Lipitor] 20 mg PO HS 11/19/17 11/19/17 Cholecalciferol [Vitamin D3] 1,000 unit PO DAILY 11/19/17 11/19/17 Previous Rx's Medication Instructions Recorded Ketorolac [Toradol] 10 mg PO Q6HR PRN #15 tab 11/19/17 Metoclopramide HCl [Reglan] 10 mg PO Q6HR PRN #15 tablet 11/19/17 Tamsulosin [Flomax] 0.4 mg PO DAILY #14 cap 11/19/17 Famotidine [Pepcid] 40 mg PO BID #28 tablet 08/24/21 hydrOXYzine HCL [Atarax] 25 mg PO TID PRN #15 tab 08/24/21 predniSONE 50 mg PO DAILY #5 tab 08/24/21 Ondansetron Odt [Zofran Odt] 4 mg PO Q8HR PRN #10 tab 08/30/21 Allergies Allergy/AdvReac Type Severity Reaction Status Date / Time lisinopril AdvReac Swelling Verified 08/30/21 10:27 Review of Systems ROS Statement: Those systems with pertinent positive or pertinent negative responses have been documented in the HPI. ROS Other: All systems not noted in ROS Statement are negative. Constitutional: Denies: fever Eyes: Denies: eye pain ENT: Denies: ear pain Respiratory: Denies: cough, dyspnea Cardiovascular: Denies: chest pain Endocrine: Reports: fatigue Gastrointestinal: Reports: nausea, vomiting, diarrhea. Denies: abdominal pain Genitourinary: Denies: dysuria Musculoskeletal: Denies: back pain Skin: Denies: rash Neurological: Denies: weakness Past Medical History Past Medical History: Diabetes Mellitus, Hyperlipidemia Additional Past Medical History / Comment(s): myofascial pain, hypertriglyceridemia, kidney stones History of Any Multi-Drug Resistant Organisms: None Reported Past Surgical History: Orthopedic Surgery, Tonsillectomy Additional Past Surgical History / Comment(s): right foot surgery, Past Anesthesia/Blood Transfusion Reactions: No Reported Reaction Past Psychological History: No Psychological Hx Reported Smoking Status: Never smoker Past Alcohol Use History: Occasional Past Drug Use History: None Reported General Exam Limitations: no limitations General appearance: alert, in no apparent distress Head exam: Present: normocephalic Eye exam: Present: normal appearance ENT exam: Present: normal exam, normal oropharynx Neck exam: Present: normal inspection. Absent: tenderness, meningismus Respiratory exam: Present: normal lung sounds bilaterally Cardiovascular Exam: Present: regular rate, normal rhythm GI/Abdominal exam: Present: soft, normal bowel sounds. Absent: distended, tenderness, guarding, rebound, rigid, pulsatile mass Extremities exam: Present: normal inspection Neurological exam: Present: alert Psychiatric exam: Present: normal affect, normal mood Skin exam: Present: normal color Course Vital Signs 08/30/21 08/30/21 10:27 12:26 Temperature 97.6 F 100.6 F H Pulse Rate 100 Respiratory 18 Rate Blood Pressure 101/60 O2 Sat by Pulse 96 Oximetry Medical Decision Making - Medical Decision Making Patient is reevaluated and updated. Patient is tolerating oral intake. Patient is a candidate for monoclonal antibodies and will receive this prior to discharge - Lab Data Result diagrams: 08/30/21 11:46 08/30/21 11:46 Lab Results 08/30/21 08/30/21 08/30/21 Range/Units 11:46 11:46 11:46 WBC 12.4 H (3.8-10.6) k/uL RBC 6.20 H (4.30-5.90) m/uL Hgb 18.4 H (13.0-17.5) gm/dL Hct 54.8 H (39.0-53.0) % MCV 88.5 (80.0-100.0) fL MCH 29.7 (25.0-35.0) pg MCHC 33.6 (31.0-37.0) g/dL RDW 12.6 (11.5-15.5) % Plt Count 209 (150-450) k/uL MPV 7.3 Neutrophils % 89 % Lymphocytes % 2 % Monocytes % 7 % Eosinophils % 1 % Basophils % 1 % Neutrophils # 11.0 H (1.3-7.7) k/uL Lymphocytes # 0.2 L (1.0-4.8) k/uL Monocytes # 0.9 (0-1.0) k/uL Eosinophils # 0.1 (0-0.7) k/uL Basophils # 0.1 (0-0.2) k/uL Sodium 137 (137-145) mmol/L Potassium 5.0 (3.5-5.1) mmol/L Chloride 103 (98-107) mmol/L Carbon Dioxide 23 (22-30) mmol/L Anion Gap 11 mmol/L BUN 25 H (9-20) mg/dL Creatinine 1.19 (0.66-1.25) mg/dL Est GFR (CKD-EPI)AfAm 80 (>60 ml/min/1.73 sqM) Est GFR (CKD-EPI)NonAf 69 (>60 ml/min/1.73 sqM) Glucose 196 H (74-99) mg/dL Calcium 9.3 (8.4-10.2) mg/dL Total Bilirubin 1.0 (0.2-1.3) mg/dL AST 23 (17-59) U/L ALT 39 (4-49) U/L Alkaline Phosphatase 76 (38-126) U/L Total Protein 7.3 (6.3-8.2) g/dL Albumin 4.2 (3.5-5.0) g/dL Amylase 58 (30-110) U/L Lipase 185 (23-300) U/L Coronavirus (PCR) Detected A (Not Detectd) Disposition Clinical Impression: Vomiting, COVID-19 Disposition: HOME SELF-CARE Condition: Stable Instructions (If sedation given, give patient instructions): Acute Nausea and Vomiting (ED), COVID-19 (Coronavirus Disease 2019) (ED) Additional Instructions: Please do follow-up primary care physician in the next couple days for recheck. Prescription for nausea medicine has been sent to pharmacy. Return for not tolerating fluids, uncontrolled vomiting, worsening symptoms or other concerns. [id number] Tylenol as needed. Prescriptions: Ondansetron Odt [Zofran Odt] 4 mg PO Q8HR PRN #10 tab PRN Reason: Nausea Is patient prescribed a controlled substance at d/c from ED?: No Referrals: Delfin Hammer MD [Primary Care Provider] - 1-2 days Time of Disposition: 12:59
[2021-08-30 12:16] LABS: Albumin 4.2 g/dL (3.5-5.0); Calcium 9.3 mg/dL (8.4-10.2); Total Protein 7.3 g/dL (6.3-8.2)
[2021-08-30 12:22] LABS: Basophils # (A) 0.1 k/uL (0-0.2); Basophils % (A) 1 %; Eosinophils # (A) 0.1 k/uL (0-0.7); Eosinophils % (A) 1 %; HCT 54.8 % (39.0-53.0); HGB 18.4 gm/dL (13.0-17.5); Lymphocytes # (A) 0.2 k/uL (1.0-4.8); Lymphocytes % (A) 2 %; MCH 29.7 pg (25.0-35.0); MCHC 33.6 g/dL (31.0-37.0); MCV 88.5 fL (80.0-100.0); Mean Platelet Volume 7.3; Monocytes # (A) 0.9 k/uL (0-1.0); Monocytes % (A) 7 %; Neutrophils % (A) 89 %; Platelet Count 209 k/uL (150-450); RDW 12.6 % (11.5-15.5); WBC 12.4 k/uL (3.8-10.6)
[2021-08-30] MEDS ORDERED: ACETAMINOPHEN TAB 500 MG TAB PO STA (12:28)
[2021-08-30] MEDS ORDERED: SOTROVIMAB (EUA) 500 MG in SODIUM CHLORIDE 0.9% 100 ML IVPB ONE (14:30)
[2021-08-30] MEDS ORDERED: SODIUM CHLORIDE 0.9% 50 ML IVPB ONE (14:30)
[2021-08-30 16:26] VITALS: BP 108/68; PULSE 88; TEMP 100.2
== END 2021-08-30 16:25 | disposition home or self-care (01) ==
LOC: EC 10:14
DX: Z88.8 Allergy status to other drugs, medicaments and biological substances (principal); U07.1 COVID-19; R11.10 Vomiting, unspecified; I10 Essential (primary) hypertension; E11.9 Type 2 diabetes mellitus without complications
CPT/HCPCS: 36415; 80053; 82150; 83690; 85025; 87635; 99284; 96374; 96375; 96361; J2405; Q0247